=== PATIENT | female | born 1940 | race African-American/Black ===

== ENCOUNTER 2022-01-10 01:08 | Emergency (ER) | payer OTHER ==
[~2022-01-10] VITALS: Ht 167.6 cm; Wt 66.0 kg
[2022-01-10] MEDS ORDERED: MORPHINE SULFATE 4 MG/ML CPJ (NOT FOR IM USE) IV STA (01:43)
[2022-01-10] MEDS ORDERED: ONDANSETRON HCL 4MG/2ML INJ IV STA (01:43)
[2022-01-10] MEDS ORDERED: HYDRALAZINE 20MG/ML VIAL IV ONE (01:45)
[2022-01-10 02:44] LABS: BASOPHILS % 0.4 % (0.0-2.0); EOSINOPHILS % 1.4 % (0.0-5.0); HEMATOCRIT. 31.6 % (36.0-48.0); HEMOGLOBIN. 10.5 g/dL (12.0-16.0); MEAN CORPUSCULAR HEMOGLOBIN 27.4 pg (28.0-32.0); MEAN CORPUSCULAR VOLUME 82.6 fL (81.0-99.0); MEAN PLATELET VOLUME 8.6 fl (7.4-10.4); MONOCYTES % 4.2 % (2.0-8.0); PLATELET 224 x1000/uL (130-400); RED BLOOD CELL COUNT 3.82 mill/uL (4.2-5.4); RED CELL DISTRIBUTION WIDTH 14.8 % (11.6-14.6)
[2022-01-10 02:47] LABS: CHLORIDE 108 mEq/L (98-107)
[2022-01-10] MEDS ORDERED: ONDANSETRON HCL 4MG/2ML INJ IV ONE (04:00)
[2022-01-10 08:45] VITALS: BP 165/73
[2022-01-10] MEDS ORDERED: HYDRALAZINE HCL 50MG TABLET PO ONE (09:15)
== END 2022-01-10 08:48 | disposition short-term general hospital (02) ==
LOC: ER 01:08
DX: I10 Essential (primary) hypertension (principal); R10.84 Generalized abdominal pain; Z20.822 Contact with and (suspected) exposure to COVID-19
CPT/HCPCS: 36415; 70450; 71045; 74176; 80053; 82962; 83880; 84484; 85025; 87426; 96374; 96375; 96376; 99291; C9803; J0360; J2270; J2405

== ENCOUNTER 2022-05-18 22:56 | Emergency (ER) | payer OTHER ==
[~2022-05-18] VITALS: Ht 165.1 cm; Wt 66.0 kg
[2022-05-19] MEDS ORDERED: ACETAMINOPHEN 325MG TABLET PO ONE (03:30)
[2022-05-19] MEDS ORDERED: LOSARTAN POTASSIUM 50 MG TABLET PO ONE (03:30)
[2022-05-19] MEDS ORDERED: ATENOLOL 25MG TABLET PO ONE (03:30)
[2022-05-19 04:00] VITALS: BP 169/77
== END 2022-05-19 04:36 | disposition home or self-care (01) ==
LOC: ER 22:56
DX: I10 Essential (primary) hypertension (principal)
CPT/HCPCS: 93005; 99284

== ENCOUNTER 2023-01-21 08:42 | Emergency (ER) | payer OTHER ==
[~2023-01-21] VITALS: Ht 167.6 cm; Wt 65.0 kg
[2023-01-21 08:44] VITALS: O2SAT 97
[2023-01-21 10:03] LABS: BASOPHILS % 0.8 % (0.0-2.0); EOSINOPHILS % 3.6 % (0.0-5.0); HEMATOCRIT. 30.5 % (36.0-48.0); HEMOGLOBIN. 10.1 g/dL (12.0-16.0); LYMPHOCYTES % 42.3 % (20.0-50.0); MEAN CORPUSCULAR HEMOGLOBIN 27.7 pg (28.0-32.0); MEAN CORPUSCULAR HGB CONC 33.2 g/dL (31.0-37.0); MEAN CORPUSCULAR VOLUME 83.4 fL (81.0-99.0); MEAN PLATELET VOLUME 9.3 fl (7.4-10.4); MONOCYTES % 7.8 % (2.0-8.0); NEUTROPHILS % 45.5 % (40.0-76.0); PLATELET 225 x1000/uL (130-400); RED BLOOD CELL COUNT 3.66 mill/uL (4.2-5.4); RED CELL DISTRIBUTION WIDTH 15.5 % (11.6-14.6)
[2023-01-21 10:04] LABS: CHLORIDE 108 mEq/L (98-107); INDEX HEMOLYSI 4 (1-3); INDEX ICTERIC 1 (1-4); INDEX LIPEMIC 1 (1-3); SODIUM 140 mEq/L (136-145)
[2023-01-21 10:17] LABS: ALANINE AMINOTRANSFERASE 15 IU/L (13-61); ALBUMIN 3.8 g/dL (3.4-5.0); ASPARTATE AMINOTRANSFERASE 19 IU/L (15-37); BILIRUBIN TOTAL 1.3 mg/dL (0.1-1.0); CARBON DIOXIDE 25 mEq/L (21-32); GLUCOSE 130 mg/dL (70-105); NT PRO B-TYPE NATRIURETIC PEP 333 pg/mL (5-125); PROTEIN TOTAL 7.5 g/dL (6.0-8.3); TROPONIN I HIGH SENSITIVITY 18 ng/L (<54); UREA NITROGEN BLOOD 17 mg/dL (7-21)
[2023-01-21 13:40] VITALS: BP 162/68; PULSE 60; RESP 16; TEMP 97.7
== END 2023-01-21 17:06 | disposition short-term general hospital (02) ==
LOC: ER 09:19
DX: R55 Syncope and collapse (principal); E11.9 Type 2 diabetes mellitus without complications; I11.9 Hypertensive heart disease without heart failure; Z85.3 Personal history of malignant neoplasm of breast; Z88.0 Allergy status to penicillin; Z88.5 Allergy status to narcotic agent
CPT/HCPCS: 36415; 71045; 80053; 83880; 84484; 85025; 93005; 99285

== ENCOUNTER 2023-08-14 15:45 | Emergency (ER) | payer OTHER ==
[~2023-08-14] VITALS: Ht 157.5 cm; Wt 60.0 kg
[2023-08-14 15:49] VITALS: O2SAT 100
[2023-08-14] MEDS: ATENOLOL 25MG TABLET PO ONE (17:15)
[2023-08-14] MEDS: LOSARTAN 25 MG TABLET PO ONE (17:15)
[2023-08-14] MEDS: ACETAMINOPHEN 325MG TABLET PO ONE (17:20)
[2023-08-14 18:15] VITALS: BP 166/89; PULSE 64; RESP 14; TEMP 98.4
[2023-08-14] MEDS ORDERED: TOPUD MT (18:32)
== END 2023-08-14 18:44 | disposition home or self-care (01) ==
LOC: ER 15:45
DX: S00.03XA Contusion of scalp, initial encounter (principal); E11.9 Type 2 diabetes mellitus without complications; I10 Essential (primary) hypertension; M25.521 Pain in right elbow; M25.512 Pain in left shoulder; W18.39XA Other fall on same level, initial encounter; Y93.89 Activity, other specified; Y92.89 Other specified places as the place of occurrence of the external cause; Y99.8 Other external cause status
CPT/HCPCS: 73030; 73080; 99284